=== PATIENT | female | born 2000 | race Caucasian/White ===

== ENCOUNTER → 2023-05-11 08:51 | Outpatient (BNVA) | payer BC, MEDICAID, SELFPAY | PROVIDERS: PCP Family Medicine; Visit Provider Family Medicine | DX: Z34.90 Encounter for supervision of normal pregnancy, unspecified, unspecified trimester (principal); N91.2 Amenorrhea, unspecified | CPT/HCPCS: 81025 ==

== ENCOUNTER → 2023-05-20 14:49 | Outpatient (BNVA) | payer SELFPAY | PROVIDERS: PCP Family Medicine; Visit Provider Nurse Practitioner Family | DX: R11.2 Nausea with vomiting, unspecified (principal) | CPT/HCPCS: 81000 ==

== ENCOUNTER 2023-05-30 12:56 | Emergency (ER) | payer SELFPAY ==
[2023-05-30 13:44] VITALS: BP 118/79; PULSE 84; RESP 16; TEMP 36.6; O2SAT 98; BMI 26.7
--- NOTE | 2023-05-30 14:03 | US_ITS ---
WS: [id number] Exam: US OB <= 14 weeks fetus [id number] Date/Time of Exam: 05/30/2023 3:06 PM Reason For Exam: cramping/dizzy Viable intrauterine with single fetus noted. [place]-rump length measurements average 3.07 cm . Estimated gestational age is 10 weeks 0 days. Heart rate 180 bpm. No sign of subchorionic hemorrhag e. The cervix is closed. The cervix measures 4.16 cm at greatest length. US/US OB <= 14 weeks fetus [id number] IMPRESSION: 1. Viable intrauterine with single fetus estimated at 10 weeks gestat ional age. No complications are noted.
--- NOTE | 2023-05-30 14:04 | ED_ITS ---
HPI - Female Genitourinary General: Chief complaint: Abdominal Pain Stated complaint: appr.10wks preg/cramps/vomit blood/dizzy/ Time Seen by Provider: 05/30/23 13:53 Source: patient Mode of arrival: ambulatory Limitations: no limitations History of Present Illness: Patient is a 22-year-old female here with her significant other for complaints of pelvic cramping, vomiting, and feeling dizzy-dizziness starting today. She states she is not sure how far along she is but has had the confirmed. She actually had an OB appointment today with Dr. Irving but states her significant other freaked out about her symptoms and brought her to the ED instead. Patient states she has had vomiting since finding out she was . Her primary care provider is treating her with promethazine supposito gavin. She has also had cramping since finding out she was . Patient denies vaginal bleeding or vaginal discharge. She is not running fevers. MD elicited complaint: pelvic pain and other (vomiting, dizzy) Onset (ago): hour(s) Severity: mild Quality of pain: cramping Consistency: intermittent Vaginal discharge: none Vaginal bleeding: none Exacerbating factors: none Relieving factors: none Associated symptoms: Reports no associated symptoms and nausea; Deny abdominal pain, headache(s) or vaginal discharge Treatment prior to arrival: none Sexual activity: Yes Patient : Yes Review of Systems Const: Denies: fever(s), chills, body aches, fatigue or malaise Eyes: Denies: change in vision, blurry vision, floaters or seeing flashes Card: Denies: chest pain Resp: Denies: dyspnea GI: Reports: nausea and vomiting; Denies: abdominal pain, diarrhea, hematochezia or melena : Reports: pelvic pain; Denies: flank pain, dysuria, hematuria, vaginal odor, vaginal bleeding or vaginal discharge Musc: Denies: neck pain, back pain, extremity pain or joint pain Skin/Breast: Denies: rash Neuro: Denies: headache(s), numbness in extremities, weakness in extremities, sensory changes or dizziness PFS ED PFSH: Family History Mother Depression Acute anxiety Father No problems noted. Denies family history of Colon cancer Ovarian cancer Diabetes Heart disease Hyperlipidemia Breast cancer Hypertension Uterine cancer Thyroid disease Stroke Social History Smoking and tobacco status: former smoker Quit status (tobacco): has quit using tobacco Year quit tobacco: 2021 Second hand smoke exposure: Yes Alcohol intake: never Substance/Drug Use: never Current occupational status: unemployed Current gender identity: Female Special flaco needs: No Physical Exam Const: COMMON NORMALS: no acute distress, average body habitus, patient oriented x3, no limitations, healthy appearing, alert and well nourished ORIENTATION/CONSCIOUSNESS: Yes awake, Yes oriented to person, Yes oriented to place and Yes oriented to time HENMT: COMMON NORMALS: normocephalic and atraumatic HEAD & SCALP: normal to inspection, normocephalic and atraumatic Eye: COMMON NORMALS: no scleral icterus GENERAL EYE: appearance normal, both eyes and all related structures Neck/C-Spine: COMMON NORMALS: full ROM, no lymphadenopathy, supple and no meningeal signs Resp: COMMON NORMALS: normal respiratory effort and clear to auscultation bi laterally AUSCULTATION: clear to auscultation bilaterally Cardio: COMMON NORMALS: regular rate and regular rhythm RATE: regular rate RHYTHM: regular rhythm GI: COMMON NORMALS: Normal to inspection, nondistended, normoactive bowel sounds present, Soft to palpation, non-tender, No hepatosplenomegaly present and no masses PALPATION: Yes Soft to palpation and Yes No hepatosplenomegaly present : COMMON NORMALS: Yes no CVA tenderness BLADDER/KIDNEY EXAM: Yes no CVA tenderness Back/Pelvis: COMMON NORMALS: no CVA tenderness and thoracic and lumbar spine normal to inspection Extremity: COMMON NORMALS: normal to inspection GENERAL: Yes normal exam except as noted Neuro: ANTOLIN COMA SCALE: document GCS findings [place] coma scale eye opening: Spontaneous [place] coma scale verbal response: Orientated [place] coma scale motor response: Obey commands [place] coma scale total score: 15 COMMON NORMALS: patient oriented x3, moves all extremities, no focal motor deficits, no sensory deficits noted and gait normal SENSORIUM/ORIENTATION: Yes alert, Yes oriented to person, Yes oriented to place and Yes oriented to time MENINGEAL SIGNS: Yes no meningeal signs Skin: COMMON NORMALS: no rashes or lesions noted GENERAL SKIN EXAM: no rashes or lesions noted Course Vital Signs: Vital signs: Vital Signs Temperature 97.9 F 05/30/23 13:44 Pulse Rate 84 05/30/23 13:44 Respiratory Rate 16 05/30/23 13:44 Blood Pressure 118/79 05/30/23 13:44 Pulse Oximetry 98 05/30/23 13:44 Oxygen Delivery Me thod Room Air 05/30/23 13:44 MDM - Female Medical Decision Making Patient appears in no acute distress. Her vital signs are normal. Blood work is unremarkable. Her ultrasound showing a live intrauterine with a single fetus estimated at 10 weeks. [facility] so [facility] can [facility]dule her OB appointment. Patient is for discharge at this time. Lab Data 05/30/23 14:41 05/30/23 14:41 Radiology Impressions Ultrasound 05/30/23 14:03 IMPRESSION: 1. Viable intrauterine with single fetus estimated at 10 weeks gestational age. No complications are noted. Laboratory Results WBC 8.6 10^3/uL (4.0-10.0) 05/30/23 14:41 RBC 4.81 10^6/uL (4.1-5.3) 05/30/23 14:41 Hgb 13.5 g/dL (11.5-15.3) 05/30/23 14:41 Hct 43.0 % (37.0-47.0) 05/30/23 14:41 MCV 89.4 fl (81-99) 05/30/23 14:41 MCH 28.1 pg (28.0-34.0) 05/30/23 14:41 MCHC 31.4 g/dL (30.0-36.0) 05/30/23 14:41 RDW 13.2 % (12.1-15.1) 05/30/23 14:41 Plt Count 264 10^3/cmm (130-400) 05/30/23 14:41 MPV 12.1 fL (7.4-10.4) H 05/30/23 14:41 Neut % (Auto) 72.0 % 05/30/23 14:41 Lymph % (Auto) 19.9 % 05/30/23 14:41 [place] % (Auto) 7.5 % 05/30/23 14:41 Eos % (Auto) 0.0 % 05/30/23 14:41 Baso % (Auto) 0.3 % 05/30/23 14:41 Neut # (Auto) 6.21 10^3/uL (1.8-7.7) 05/30/23 14:41 Lymph # (Auto) 1.7 10^3/uL (0.8-4.8) 05/30/23 14:41 [place] # (Auto) 0.7 10^3/uL (0.2-0.9) 05/30/23 14:41 Eos # (Auto) 0.0 10^3/uL (0.0-0.8) 05/30/23 14:41 Baso # (Auto) 0.0 10^3/uL (0.0-0.1) 05/30/23 14:41 Nucleated RBC % (auto) 0 % 05/30/23 14:41 Nucleated RBCs # 0.0 /100WBC 05/30/23 14:41 Sodium 136 mmol/L (136-145) 05/30/23 14:41 Potassium 3.8 mmol/L (3.5-5.1) 05/30/23 14:41 Chloride 102 mmol/L (98-107) 05/30/23 14:41 Carbon Dioxide 23 mmol/L (22-29) 05/30/23 14:41 Anion Gap 14.8 (5-19) 05/30/23 14:41 BUN 5 mg/dL (6-20) L 05/30/23 14:41 Creatinine 0.4 mg/dL (0.5-0.9) L 05/30/23 14:41 GFR Calculation 196.1 mL/min (90-130) H 05/30/23 14:41 Glucose 81 mg/dL (65-115) 05/30/23 14:41 Calculated Osmolality 278 mOsm/kg (285-295) L 05/30/23 14:41 Calcium 8.9 mg/dL (8.5-10.5) 05/30/23 14:41 Total Bilirubin 0.2 mg/dL (0.15-1.2) 05/30/23 14:41 AST 14 U/L (0-32) 05/30/23 14:41 ALT 24 U/L (0-33) 05/30/23 14:41 Alkaline Phosphatase 46 U/L (35-105) 05/30/23 14:41 Total Protein 6.7 g/dL (6.6-8.7) 05/30/23 14:41 Albumin 3.9 g/dL (3.5-5.2) 05/30/23 14:41 Globulin 2.8 g/dL (1.3-4.6) 05/30/23 14:41 Ser , Semi-Qnt 26026.00 mIU/mL 05/30/23 14:41 Urine Color Yellow (Yellow) 05/30/23 14:31 Urine Appearance Clear (CLEAR) 05/30/23 14:31 Urine pH 5 (5-7) 05/30/23 14:31 Ur Specific [place] 1.025 (1.005-1.030) 05/30/23 14:31 Urine Protein Neg (Negative) 05/30/23 14:31 Urine Glucose (UA) 1+ (Normal) H 05/30/23 14:31 Urine Ketones Negative (Negative) 05/30/23 14:31 Urine Blood Neg (Negative) 05/30/23 14:31 Urine Nitrate Negative (Negative) 05/30/23 14:31 Urine Bilirubin Neg (Negative) 05/30/23 14:31 Urine Urobilinogen Norm mg/dL (Negative) 05/30/23 14:31 Ur Leukocyte Esterase Negative (Negative) 05/30/23 14:31 Discharge Plan Discharge Patient Disposition: Home Clinical Impression: 10 weeks gestation of Condition: Stable Prescriptions: No Action ondansetron 4 mg tablet,disintegrating 4 mg PO Q8H PRN (Reason: nausea and vomiting) Qty: 30 1RF promethazine 25 mg suppository 25 mg IA Q6H PRN (Reason: nausea and vomiting) Qty: 24 0RF Discharge Orders: Discharge ED (Routine); Ordered 05/30/23 Ordered By: Caitlin Alcala Referrals: Yany Jones MD [Primary Care Provider] - Coding Level of Care Code ED Leather Sponger for Chg [place]
[2023-05-30 14:45] LABS: Add Urine Microscopic? NO; Charge for UA Resulting for Rev
[2023-05-30 14:49] LABS: Basophils % 0.3 %; Hemoglobin 13.5 g/dL (11.5-15.3); Lymphocytes # 1.7 10^3/uL (0.8-4.8); Lymphocytes % 19.9 %; Mean Corpuscular HGB Conc 31.4 g/dL (30.0-36.0); Mean Corpuscular Hemoglobin 28.1 pg (28.0-34.0); Mean Corpuscular Volume 89.4 fl (81-99); Mean Platelet Volume 12.1 fL (7.4-10.4); Monocytes # 0.7 10^3/uL (0.2-0.9); Monocytes % 7.5 %; Neutrophils # 6.21 10^3/uL (1.8-7.7); Nucleated Red Blood Cells % 0 %; Platelet Count 264 10^3/cmm (130-400); Red Blood Count 4.81 10^6/uL (4.1-5.3); Red Cell Distribution Width 13.2 % (12.1-15.1); White Blood Count 8.6 10^3/uL (4.0-10.0)
[2023-05-30 14:54] LABS: Bilirubin Urine Neg (Negative); Blood Urine Neg (Negative); Glucose Urine UA 1+ (Normal); Ketones Urine Negative (Negative); Leukocyte Esterase Urine Negative (Negative); Nitrate Urine Negative (Negative); Protein Urine Neg (Negative); Specific Gravity, Urine 1.025 (1.005-1.030); Urine Appearance Clear (CLEAR); Urine Color Yellow (Yellow); Urobilinogen Urine Norm (Negative); pH Urine 5 (5-7)
[2023-05-30 15:26] LABS: Alanine Aminotransferase 24 U/L (0-33); Albumin Level 3.9 g/dL (3.5-5.2); Alkaline Phosphatase 46 U/L (35-105); Anion Gap 14.8 (5-19); Aspartate Amino Transferase 14 U/L (0-32); Blood Urea Nitrogen 5 mg/dL (6-20); Calcium 8.9 mg/dL (8.5-10.5); Carbon Dioxide 23 mmol/L (22-29); Chloride 102 mmol/L (98-107); Globulin 2.8 g/dL (1.3-4.6); Glomerular Filtration Rate 196.1 mL/min (90-130); Glucose 81 mg/dL (65-115); Osmolality Calculated 278 mOsm/kg (285-295); Potassium 3.8 mmol/L (3.5-5.1); Sodium 136 mmol/L (136-145); Total Bilirubin 0.2 mg/dL (0.15-1.2); Total Protein 6.7 g/dL (6.6-8.7)
== END 2023-05-30 16:04 | disposition home or self-care (01) ==
PROVIDERS: Emergency Provider Physician Assistant; PCP Family Medicine
DX: O26.891 Other specified pregnancy related conditions, first trimester (principal); R10.2 Pelvic and perineal pain; R42 Dizziness and giddiness; Z3A.10 10 weeks gestation of pregnancy; Z87.891 Personal history of nicotine dependence
CPT/HCPCS: 36415; 76801; 80053; 81003; 84702; 85025; 99284

== ENCOUNTER → 2023-06-14 15:00 | Outpatient (BNVA) | payer SELFPAY | PROVIDERS: PCP Family Medicine; Referring Provider Family Medicine; Visit Provider Nurse Practitioner Women's Health | DX: Z34.90 Encounter for supervision of normal pregnancy, unspecified, unspecified trimester (principal); Z11.3 Encounter for screening for infections with a predominantly sexual mode of transmission | CPT/HCPCS: 80307; 81000; 84443; 85027; 86592; 86762; 86803; 86850; 86900; 87086; 87340; 87491; 87591; 87806 ==